=== PATIENT | male | born 1985 | race Caucasian/White ===

== ENCOUNTER 2017-03-07 20:39 | Emergency (ER) | payer OTHER | END 2017-03-07 23:15 | disposition home or self-care (01) | LOC: D.ER 20:39 | DX: L03.116 Cellulitis of left lower limb (principal); L02.416 Cutaneous abscess of left lower limb; F17.200 Nicotine dependence, unspecified, uncomplicated ==

== ENCOUNTER 2017-04-03 15:17 | Emergency (ER) | payer OTHER | END 2017-04-03 18:59 | disposition home or self-care (01) | LOC: D.ER 15:17 | DX: L02.416 Cutaneous abscess of left lower limb (principal) ==

== ENCOUNTER 2017-04-08 14:48 | Emergency (ER) | payer OTHER | END 2017-04-08 16:39 | disposition home or self-care (01) | LOC: D.ER 14:48 | DX: L02.416 Cutaneous abscess of left lower limb (principal); F17.200 Nicotine dependence, unspecified, uncomplicated ==

== ENCOUNTER 2017-07-16 20:34 | Emergency (ER) | payer OTHER ==
[~2017-07-16] VITALS: Ht 188 cm; Wt 75.0 kg
[2017-07-16 21:03] VITALS: BP 121/74; Ht 188 cm; Wt 75.0 kg
== END 2017-07-16 22:58 | disposition home or self-care (01) ==
LOC: D.ER 20:34
DX: L02.416 Cutaneous abscess of left lower limb (principal)

== ENCOUNTER 2017-07-18 16:13 | Emergency (ER) | payer OTHER ==
[~2017-07-18] VITALS: Ht 188 cm; Wt 72.7 kg
[2017-07-18 16:34] VITALS: Ht 188 cm; Wt 72.7 kg
[2017-07-18 19:33] LABS: APPEARANCE CLEAR (CLEAR); BILIRUBIN NEGATIVE (NEGATIVE); COLOR YELLOW (YELLOW); GLUCOSE NEGATIVE (NEGATIVE); KETONE NEGATIVE (NEGATIVE); NITRITE NEGATIVE (NEGATIVE); PROTEIN NEGATIVE (NEGATIVE); SPECIFIC GRAVITY 1.015 (1.005-1.020); UROBILINOGEN NORMAL (NORMAL)
[2017-07-18 19:39] LABS: BASOPHILS 0.3 % (0-2); EOSINOPHILS 5.2 % (0-7); HEMATOCRIT 42.9 % (42.0-54.0); HEMOGLOBIN 14.8 g/dL (13.5-17.5); IMMATURE GRANULOCYTES 0.2 % (0-5); LYMPHOCYTES 27.5 % (15-50); MCH 30.7 pg (26.0-34.0); MCHC 34.5 g/dL (31.0-37.0); MEAN PLATELET VOLUME 9.1 fL (7.4-10.4); MONOCYTES 5.9 % (2-11); NEUTROPHILS 60.9 % (40-80); PLATELET COUNT 224 10x3/uL (130-400); RBC 4.82 10x6/uL (4.20-6.10); RDW 12.9 % (11.5-14.5); WBC 9.6 10x3/uL (4.8-10.8)
[2017-07-18] MEDS ORDERED: BACTRIM DS TABL1 TAB PO (20:43)
[2017-07-18] MEDS ORDERED: TORADOL10 MG PO (20:43)
[2017-07-18 21:01] VITALS: BP 131/70
[2017-07-22 07:34] LABS: CHLAMYDIA TRACHOMATIS, NAA Negative (Negative)
== END 2017-07-18 21:00 | disposition home or self-care (01) ==
LOC: D.ER 16:13
PROVIDERS: Family Medicine
DX: L02.416 Cutaneous abscess of left lower limb (principal); R36.9 Urethral discharge, unspecified; F17.200 Nicotine dependence, unspecified, uncomplicated

== ENCOUNTER 2017-07-22 19:45 | Emergency (ER) | payer OTHER ==
[~2017-07-22] VITALS: Ht 188 cm; Wt 72.7 kg
[~2017-07-22 19:45] MED LIST: BACTRIM DS TABL1 TAB PO; TORADOL10 MG PO
[2017-07-22 20:20] VITALS: Ht 188 cm; Wt 72.7 kg
[2017-07-22] MEDS ORDERED: VOLTAREN75 MG PO (21:12)
[2017-07-22] MEDS ORDERED: MINOCIN100 MG PO (21:12)
[2017-07-22 21:30] VITALS: BP 122/76
== END 2017-07-22 21:31 | disposition home or self-care (01) ==
LOC: D.ER 19:45
DX: L03.116 Cellulitis of left lower limb (principal); F17.200 Nicotine dependence, unspecified, uncomplicated